=== PATIENT | male | born 1990 | race African-American/Black ===

== ENCOUNTER 2021-09-01 01:19 | Emergency (ER) | payer MEDICAID ==
[~2021-09-01] VITALS: Ht 172.7 cm; Wt 53.4 kg
--- NOTE | 2021-09-01 02:03 | NUR ---
PATIENTS WOUNDS WERE WRAPPED, A PRESSURE DRESSING TO LEFT WRIST. NO FLEXON OR EXTENTION TO LEFT HAND. NUMBNESS TO FINGERS LEFT HAND.
--- NOTE | 2021-09-01 02:05 | NUR ---
[facility] WAS NOTIFIED, [facility] WILL RESPOND.
[2021-09-01] MEDS ORDERED: TETanus/Pertussis (Acell)/Diphther VAC/PF (Tdap-Adult) 0.5ml syringe IMVAC ONE (02:10)
[2021-09-01] MEDS ORDERED: LIDOcaine 1% 30ml preserv. free vial IJ ONE (02:15)
--- NOTE | 2021-09-01 03:31 | NUR ---
Labs cancelled and Dr. Jackson said no surgery.
[2021-09-01] MEDS ORDERED: cephalexin 500mg capsule PO ONE (03:45)
[2021-09-01] MEDS ORDERED: CEPH-585 PO (03:57)
[2021-09-01 04:12] VITALS: BP 112/78
== END 2021-09-01 04:14 | disposition home or self-care (01) ==
LOC: ER 01:20
DX: S61.512A Laceration without foreign body of left wrist, initial encounter (principal); S51.812A Laceration without foreign body of left forearm, initial encounter; S61.011A Laceration without foreign body of right thumb without damage to nail, initial encounter; Z20.3 Contact with and (suspected) exposure to rabies; Z79.2 Long term (current) use of antibiotics; Y08.89XA Assault by other specified means, initial encounter; Y93.89 Activity, other specified; Y92.89 Other specified places as the place of occurrence of the external cause; Y99.8 Other external cause status
CPT/HCPCS: 12002; 73110; 73120; 90471; 90715; 99284

== ENCOUNTER 2024-02-16 10:24 | Emergency (ER) | payer MEDICAID ==
[~2024-02-16] VITALS: Ht 172.7 cm; Wt 74.0 kg
[2024-02-16 10:35] VITALS: BP 117/77; PULSE 78; RESP 18; TEMP 97.9; O2SAT 98
== END 2024-02-16 13:08 | disposition home or self-care (01) ==
LOC: ER 10:24
DX: M25.532 Pain in left wrist (principal); W19.XXXA Unspecified fall, initial encounter; Y93.89 Activity, other specified; Y92.89 Other specified places as the place of occurrence of the external cause; Y99.8 Other external cause status
CPT/HCPCS: 73110; 99283